=== PATIENT | male | born 1935 | race Caucasian/White ===

== ENCOUNTER 2017-04-03 10:10 | Inpatient (IN) | payer OTHER, MEDICARE ==
[2017-04-03 10:47] LABS: BASO # 0.1 x10^3/uL (0.0-0.2); BASO % 0 % (0-3); EOS # 0.1 x10^3/uL (0.0-0.7); EOS % 0 % (0-3); HEMOGLOBIN 13.1 g/dL (13.0-17.5); LYMPH # 1.1 x10^3/uL (1.0-4.8); LYMPH % 5 % (24-48); MEAN CORPUSCULAR HEMOGLOBIN 29 pg (25-35); MEAN CORPUSCULAR HGB CONC 33 g/dL (31-37); MEAN CORPUSCULAR VOLUME 89 fL (79-100); MONO # 1.1 x10^3/uL (0.0-1.1); MONO % 5 % (0-9); NEUT # 18.9 x10^3uL (1.8-7.7); NEUT % 89 % (31-73); PLATELET COUNT 252 x10^3/uL (140-400); RED BLOOD COUNT 4.52 x10^6/uL (4.30-5.70); RED CELL DISTRIBUTION WIDTH 13.5 % (11.5-14.5); WHITE BLOOD COUNT 21.2 x10^3/uL (4.0-11.0)
[2017-04-03 10:54] LABS: ADD MAN DIFF? YES
[2017-04-03 10:56] LABS: ANION GAP 15 (6-14); BLOOD UREA NITROGEN 24 mg/dL (8-26); BUN/CREATININE RATIO 27 (6-20); CARBON DIOXIDE 23 mmol/L (21-32); CHLORIDE 95 mmol/L (98-107); CREATININE 0.9 mg/dL (0.7-1.3); GFR 81.4; GLUCOSE 269 mg/dL (70-99); SODIUM 133 mmol/L (136-145)
[2017-04-03] MEDS: ACETAMINOPHEN 325 MG TABLET. PO (10:58)
[2017-04-03] MEDS: IV NORMAL SALINE 1000ML BAG 1,000 ML IV ×3 (10:59→16:57)
[2017-04-03 11:01] LABS: INFLUENZA A PATIENT NEGATIVE (NEGATIVE); INFLUENZA B PATIENT NEGATIVE (NEGATIVE); OBC FLU VALID
[2017-04-03 11:03] LABS: ALBUMIN 2.8 g/dL (3.4-5.0); ALBUMIN/GLOBULIN RATIO 0.6 (1.0-1.7); ALK PHOS 147 U/L (46-116); ALT (SGPT) 20 U/L (16-63); AST (SGOT) 24 U/L (15-37); LIPASE 122 U/L (73-393); TOTAL BILIRUBIN 0.9 mg/dL (0.2-1.0); TOTAL PROTEIN 7.4 g/dL (6.4-8.2)
[2017-04-03 11:04] LABS: TROPONINI < 0.017 ng/mL (0.000-0.055)
[2017-04-03 11:06] LABS: NT-PRO BNP 640 pg/mL (0-449)
[2017-04-03 11:22] LABS: LACTIC ACID 2.1 mmol/L (0.4-2.0)
[2017-04-03] MEDS ORDERED: ONDANSETRON PF 4 MG/2 ML VIAL. IV ×2 (12:00→12:15)
[2017-04-03] MEDS ORDERED: MORPHINE SULFATE 2 MG/ML DISP.SYRIN. IV (12:00)
[2017-04-03] MEDS ORDERED: levOFLOXacin PER PHARMACY. MC (12:15)
[2017-04-03] MEDS ORDERED: guaiFENesin DM 200MG/20MG 10 ML SYRUP PO (12:15)
[2017-04-03 12:33] LABS: % BANDS 37 % (0-9); % EOS 1 % (0-5); % LYMPHS 2 % (24-48); % MONOS 5 % (0-10); % MYELOS 2 % (0-0); % SEGS 53 % (35-66); PLT ESTIMATE ADEQUATE (ADEQUATE)
[2017-04-03] MEDS: IPRATRPIUM/ALBUTEROL 0.5/2.5MG 3 ML NEBU. NEB ×3 (13:02→20:00)
[2017-04-03 13:40] LABS: BILIRUBIN,URINE NEGATIVE (NEG); CLARITY,URINE CLEAR; COLOR,URINE AMBER; GLUCOSE,URINE >=1000 mg/dL (NEG); NITRITE,URINE NEGATIVE (NEG); PROTEIN,URINE 100 mg/dL (NEG-TRACE)
[2017-04-03 14:03] LABS: BACTERIA,URINE 0 /HPF (0-FEW)
[2017-04-03] MEDS: guaiFENesin DM 200MG/20MG 10 ML SYRUP PO ×3 (14:32→20:53)
[2017-04-03 18:16] LABS: TROPONINI < 0.017 ng/mL (0.000-0.055)
[2017-04-03] MEDS: LACTOBACILLUS RHAMNOSUS GG 1 CAPSULE. PO (20:50)
[2017-04-03] MEDS: ZOLPIDEM 5 MG TABLET. PO (20:50)
[2017-04-03] MEDS: DOCUSATE SODIUM 100 MG CAPSULE. PO (20:50)
[2017-04-04] LABS: TROPONINI < 0.017 ng/mL (0.000-0.055)
[2017-04-04] MEDS: ACETAMINOPHEN 325 MG TABLET. PO (01:46)
[2017-04-04] MEDS: IV NORMAL SALINE 1000ML BAG 1,000 ML IV ×2 (01:50→11:25)
[2017-04-04 05:39] LABS: ADD MAN DIFF? NO
[2017-04-04 05:46] LABS: BASO % 0 % (0-3); EOS # 0.2 x10^3/uL (0.0-0.7); EOS % 2 % (0-3); HEMATOCRIT 34.4 % (39.0-53.0); HEMOGLOBIN 11.8 g/dL (13.0-17.5); LYMPH # 1.5 x10^3/uL (1.0-4.8); LYMPH % 12 % (24-48); MEAN CORPUSCULAR HEMOGLOBIN 30 pg (25-35); MEAN CORPUSCULAR HGB CONC 34 g/dL (31-37); MEAN CORPUSCULAR VOLUME 89 fL (79-100); MONO # 1.1 x10^3/uL (0.0-1.1); MONO % 9 % (0-9); NEUT # 9.7 x10^3uL (1.8-7.7); NEUT % 77 % (31-73); PLATELET COUNT 203 x10^3/uL (140-400); RED BLOOD COUNT 3.88 x10^6/uL (4.30-5.70); RED CELL DISTRIBUTION WIDTH 13.6 % (11.5-14.5); WHITE BLOOD COUNT 12.5 x10^3/uL (4.0-11.0)
[2017-04-04 06:05] LABS: ALBUMIN 1.9 g/dL (3.4-5.0); ALBUMIN/GLOBULIN RATIO 0.4 (1.0-1.7); ALK PHOS 106 U/L (46-116); ALT (SGPT) 15 U/L (16-63); ANION GAP 8 (6-14); AST (SGOT) 16 U/L (15-37); BLOOD UREA NITROGEN 18 mg/dL (8-26); BUN/CREATININE RATIO 26 (6-20); CALCIUM 7.9 mg/dL (8.5-10.1); CARBON DIOXIDE 25 mmol/L (21-32); CHLORIDE 103 mmol/L (98-107); CREATININE 0.7 mg/dL (0.7-1.3); GFR 108.8; GLUCOSE 225 mg/dL (70-99); SODIUM 136 mmol/L (136-145); TOTAL BILIRUBIN 0.3 mg/dL (0.2-1.0); TOTAL PROTEIN 6.6 g/dL (6.4-8.2)
[2017-04-04] MEDS: IPRATRPIUM/ALBUTEROL 0.5/2.5MG 3 ML NEBU. NEB ×4 (07:36→19:39)
[2017-04-04] MEDS: guaiFENesin DM 200MG/20MG 10 ML SYRUP PO ×4 (08:03→21:24)
[2017-04-04] MEDS: PANTOPRAZOLE 40 MG TABLET.DR. PO (08:04)
[2017-04-04] MEDS: DOCUSATE SODIUM 100 MG CAPSULE. PO ×2 (08:04→21:24)
[2017-04-04] MEDS: LACTOBACILLUS RHAMNOSUS GG 1 CAPSULE. PO ×2 (08:04→21:24)
[2017-04-04] MEDS: TAMSULOSIN 0.4 MG CAP.ER.24H. PO (08:04)
[2017-04-04] MEDS: ZOLPIDEM 5 MG TABLET. PO (21:23)
[2017-04-05] MEDS: HYDROcodone/APAP 5/325MG 1 TAB TABLET PO (00:08)
[2017-04-05] MEDS: IV NORMAL SALINE 1000ML BAG 1,000 ML IV ×3 (00:09→10:34)
[2017-04-05 05:25] LABS: ADD MAN DIFF? NO
[2017-04-05 05:59] LABS: BASO % 0 % (0-3); EOS # 0.3 x10^3/uL (0.0-0.7); EOS % 3 % (0-3); HEMATOCRIT 35.2 % (39.0-53.0); HEMOGLOBIN 11.7 g/dL (13.0-17.5); LYMPH # 1.3 x10^3/uL (1.0-4.8); LYMPH % 16 % (24-48); MEAN CORPUSCULAR HEMOGLOBIN 30 pg (25-35); MEAN CORPUSCULAR HGB CONC 33 g/dL (31-37); MEAN CORPUSCULAR VOLUME 89 fL (79-100); MONO # 0.8 x10^3/uL (0.0-1.1); MONO % 10 % (0-9); NEUT # 5.7 x10^3uL (1.8-7.7); NEUT % 71 % (31-73); PLATELET COUNT 217 x10^3/uL (140-400); RED BLOOD COUNT 3.94 x10^6/uL (4.30-5.70); RED CELL DISTRIBUTION WIDTH 13.4 % (11.5-14.5); WHITE BLOOD COUNT 8.1 x10^3/uL (4.0-11.0)
[2017-04-05 06:09] LABS: ANION GAP 12 (6-14); BLOOD UREA NITROGEN 12 mg/dL (8-26); CALCIUM 8.3 mg/dL (8.5-10.1); CARBON DIOXIDE 21 mmol/L (21-32); CHLORIDE 104 mmol/L (98-107); CREATININE 0.7 mg/dL (0.7-1.3); GFR 108.8; GLUCOSE 236 mg/dL (70-99); POTASSIUM 3.8 mmol/L (3.5-5.1); SODIUM 137 mmol/L (136-145)
[2017-04-05] MEDS: LACTOBACILLUS RHAMNOSUS GG 1 CAPSULE. PO ×2 (07:59→20:10)
[2017-04-05] MEDS: DOCUSATE SODIUM 100 MG CAPSULE. PO ×2 (07:59→20:10)
[2017-04-05] MEDS: guaiFENesin DM 200MG/20MG 10 ML SYRUP PO ×4 (07:59→20:10)
[2017-04-05] MEDS: TAMSULOSIN 0.4 MG CAP.ER.24H. PO (07:59)
[2017-04-05] MEDS: PANTOPRAZOLE 40 MG TABLET.DR. PO (08:00)
[2017-04-05] MEDS: IPRATRPIUM/ALBUTEROL 0.5/2.5MG 3 ML NEBU. NEB ×4 (09:17→19:46)
[2017-04-05] MEDS: ACETAMINOPHEN 500 MG TABLET PO (17:16)
[2017-04-05] MEDS: ZOLPIDEM 5 MG TABLET. PO (20:10)
[2017-04-06] MEDS: ACETAMINOPHEN 500 MG TABLET PO (01:22)
[2017-04-06] MEDS: IV NORMAL SALINE 1000ML BAG 1,000 ML IV (01:30)
[2017-04-06 06:08] LABS: ADD MAN DIFF? NO
[2017-04-06 06:23] LABS: BASO % 1 % (0-3); EOS # 0.4 x10^3/uL (0.0-0.7); EOS % 4 % (0-3); HEMATOCRIT 35.8 % (39.0-53.0); HEMOGLOBIN 11.9 g/dL (13.0-17.5); LYMPH # 1.3 x10^3/uL (1.0-4.8); LYMPH % 14 % (24-48); MEAN CORPUSCULAR HEMOGLOBIN 30 pg (25-35); MEAN CORPUSCULAR HGB CONC 33 g/dL (31-37); MEAN CORPUSCULAR VOLUME 89 fL (79-100); MONO # 0.9 x10^3/uL (0.0-1.1); MONO % 10 % (0-9); NEUT # 6.6 x10^3uL (1.8-7.7); NEUT % 71 % (31-73); PLATELET COUNT 244 x10^3/uL (140-400); RED BLOOD COUNT 4.03 x10^6/uL (4.30-5.70); RED CELL DISTRIBUTION WIDTH 13.7 % (11.5-14.5); WHITE BLOOD COUNT 9.3 x10^3/uL (4.0-11.0)
[2017-04-06 06:50] LABS: ANION GAP 10 (6-14); BLOOD UREA NITROGEN 9 mg/dL (8-26); CALCIUM 8.6 mg/dL (8.5-10.1); CARBON DIOXIDE 23 mmol/L (21-32); CHLORIDE 103 mmol/L (98-107); CREATININE 0.7 mg/dL (0.7-1.3); GFR 108.8; GLUCOSE 240 mg/dL (70-99); POTASSIUM 4.1 mmol/L (3.5-5.1); SODIUM 136 mmol/L (136-145)
[2017-04-06] MEDS: IPRATRPIUM/ALBUTEROL 0.5/2.5MG 3 ML NEBU. NEB ×2 (07:37→11:34)
[2017-04-06] MEDS: PANTOPRAZOLE 40 MG TABLET.DR. PO (07:53)
[2017-04-06] MEDS: DOCUSATE SODIUM 100 MG CAPSULE. PO (09:05)
[2017-04-06] MEDS: LACTOBACILLUS RHAMNOSUS GG 1 CAPSULE. PO (09:06)
[2017-04-06] MEDS: TAMSULOSIN 0.4 MG CAP.ER.24H. PO (09:06)
[2017-04-06] MEDS: guaiFENesin DM 200MG/20MG 10 ML SYRUP PO ×2 (09:06→13:00)
== END 2017-04-06 14:18 | disposition home or self-care (01) | DRG 871 ==
LOC: ER 10:10 → ED HOLD 11:26 → 5 SOUTH 14:56
DX: A41.9 Sepsis, unspecified organism (principal); J18.1 Lobar pneumonia, unspecified organism; N17.0 Acute kidney failure with tubular necrosis; E44.0 Moderate protein-calorie malnutrition; E86.0 Dehydration; E87.1 Hypo-osmolality and hyponatremia; K21.9 Gastro-esophageal reflux disease without esophagitis; N40.0 Benign prostatic hyperplasia without lower urinary tract symptoms; I16.0 Hypertensive urgency; Z90.49 Acquired absence of other specified parts of digestive tract; Z68.26 Body mass index [BMI] 26.0-26.9, adult
CPT/HCPCS: 36415; 71045; 71046; 80048; 80053; 81001; 83605; 83690; 83880; 84484; 85007; 85025; 87040; 87804; 87804-59; 93005; 94640; 94760; 96361; 96365; 99285; 99285-25; J1956; J7030; J7620